=== PATIENT | male | born 1980 | race Caucasian/White ===

== ENCOUNTER 2020-03-17 10:01 | Day surgery (SDC) | payer BC ==
[2020-03-13 15:50] LABS: BASOPHILS % (AUTO) 0.7 % (0-1); EOSINOPHILS # (AUTO) 0.2 X10'3 (0-0.9); EOSINOPHILS % (AUTO) 2.6 % (0-6); LYMPHOCYTES # (AUTO) 2.2 X10'3 (1.1-4.8); LYMPHOCYTES % (AUTO) 33.2 % (21-51); MEAN CORPUSCULAR HEMOGLOBIN 28.1 PG (27.0-31.0); MEAN CORPUSCULAR HGB CONC 33.7 g/dL (33.0-36.5); MEAN CORPUSCULAR VOLUME 83.4 FL (78-98); MEAN PLATELET VOLUME 8.5 FL (7.4-10.4); MONOCYTES # (AUTO) 0.4 X10'3 (0-0.9); MONOCYTES % (AUTO) 5.7 % (2-12); NEUTROPHILS # (AUTO) 3.8 X10'3 (1.8-7.7); NEUTROPHILS % (AUTO) 57.8 % (42-75); PRE OP HEMATOCRIT 40.8 % (42.0-52.0); PRE OP HEMOGLOBIN 13.7 g/dL (14.0-17.9); PRE OP PLATELET COUNT 273 X10'3 (140-440); RED BLOOD COUNT 4.89 X10'6 (4.70-6.10); RED CELL DISTRIBUTION WIDTH 13.7 % (11.5-14.5)
[2020-03-13 15:53] LABS: ALBUMIN 3.9 G/DL (3.4-5.0); ALKALINE PHOSPHATASE 68 IU/L (46-116); BLOOD UREA NITROGEN 19 MG/DL (7-18); CHLORIDE 105 MMOL/L (99-107); CREATININE 1.27 MG/DL (0.60-1.10); PRE OP ALT 39 U/L (30-65); PRE OP ANION GAP 9 (8-16); PRE OP AST 23 U/L (10-37); PRE OP BILIRUB, TOTAL 0.3 MG/DL (0.0-1.0); PRE OP GLUCOSE 127 MG/DL (70-104); PRE OP POTASSIUM 3.5 MMOL/L (3.4-5.1); PRE OP SODIUM 140 MMOL/L (135-145); TOTAL CARBON DIOXIDE 26.4 MMOL/L (24-32); TOTAL PROTEIN 7.9 G/DL (6.4-8.2); eGFR 64 ML/MIN
[~2020-03-17] VITALS: Ht 177.8 cm; Wt 116.2 kg
[2020-03-17] VITALS (9 sets, daily range): BP systolic 135–183; BP diastolic 88–126
[~2020-03-17 10:01] MED LIST: NO HOME MEDS PO; ceFAZolin 2gm in dextrose, iso 50 ML IV ONE; famotidine 20mg tablet PO ONE; ringers solution, lacted 1,000 ML IV SCH
[2020-03-17] MEDS ORDERED: BUPIVAcaine/PF 2.5 mg/ml (0.25%) 30ml vial ONE (12:14)
[2020-03-17] MEDS ORDERED: bacitracin 15gm ointment TP ONE (12:14)
[2020-03-17] MEDS ORDERED: sevoflurane 250ml liquid IH ONE (12:31)
[2020-03-17] MEDS ORDERED: fentaNYL/PF 50MCG/1 ML 2ML syringe ONE ×2 (12:35→13:25)
[2020-03-17] MEDS ORDERED: midazolam 2 mg/2 ml injection ONE (12:35)
[2020-03-17] MEDS ORDERED: propofol inj 20 ML IV ONE (12:38)
[2020-03-17] MEDS ORDERED: ringers solution, lacted 1,000 ML IV SCH (13:01)
[2020-03-17] MEDS ORDERED: morphine 2 MG/ML inj. syringe IV PRN (13:05)
[2020-03-17] MEDS ORDERED: proCHLORperazine 10 MG/2 ml inj IV PRN (13:05)
[2020-03-17] MEDS ORDERED: morphine 4 MG/ML inj SYRINge IV PRN (13:05)
[2020-03-17] MEDS ORDERED: meperidine/PF 25mg/ml syringe IV PRN ×3 (13:05)
[2020-03-17] MEDS ORDERED: ondansetron/PF 4mg/2ml inj IV PRN (13:05)
--- NOTE | 2020-03-17 13:45 | NUR ---
Received from OR via [facility] , accompanied by Anesthesiologist PLACIDO and report given by Anesthesiolgist. PATIENT WITH 20G PIV IN LEFT FOREARM. 10L MASK ON WITH 100% SATURATIONS. VSS. DENIES PAIN. Addendum: 03/17/20 at 1355 by Boris Stapleton RN, RN Amended: Links added.
[2020-03-17] MEDS ORDERED: acetaminophen 1,000mg/100ml IV 100 ML IV ONE (14:31)
--- NOTE | 2020-03-17 15:05 | NUR ---
I HAVE REVIEWED D/C INSTRUCTIONS WITH PATIENT AND FAMILY AND THEY HAVE VERBALIZED UNDERSTANDING. PATIENT D/C HOME WITH ALL BELONGINGS AND FAMILY GAVE TRANSPORT HOME. Addendum: 03/17/20 at 1519 by Boris Stapleton RN, RN Amended: Links added.
--- NOTE | 2020-03-17 15:19 | NUR ---
100 GLUCOSE IN RECOVERY ROOM Addendum: 03/17/20 at 1519 by Boris Stapleton RN, RN Amended: Links added.
== END 2020-03-17 15:05 | disposition home or self-care (01) ==
LOC: PAS 10:01
PROVIDERS: ATTEND Urology
DX: N43.41 Spermatocele of epididymis, single (principal); Z30.2 Encounter for sterilization; I10 Essential (primary) hypertension; E11.9 Type 2 diabetes mellitus without complications; G43.909 Migraine, unspecified, not intractable, without status migrainosus; Z68.37 Body mass index [BMI] 37.0-37.9, adult; E66.9 Obesity, unspecified; Z11.59 Encounter for screening for other viral diseases; Z79.899 Other long term (current) drug therapy; Z88.1 Allergy status to other antibiotic agents; Z98.890 Other specified postprocedural states; Z87.19 Personal history of other diseases of the digestive system; Z72.89 Other problems related to lifestyle
CPT/HCPCS: 36415; 54840; 55250; 80053; 82948; 85025; 93005; J2250; J2704; J3010; J3490; U0003; A4215; A4618; A7000; J7120